=== PATIENT | male | born 1955 | race African-American/Black ===

== ENCOUNTER 2023-12-28 17:10 | Inpatient (IN) | payer MEDICAID, MEDICARE ==
[~2023-12-28] VITALS: Ht 172.7 cm; Wt 95.3 kg
[2023-12-28 17:25] VITALS: O2SAT 97
[2023-12-28 18:00] VITALS: BP 123/86; PULSE 65; RESP 19; TEMP 98.3; O2SAT 99
[2023-12-28 19:08] LABS: BASOPHILS % (AUTO) 0.7 % (0.0-2.0); EOSINOPHILS # (AUTO) 0.2 K/uL (0-0.4); EOSINOPHILS % (AUTO) 3.1 % (0.0-4.0); HEMATOCRIT 45.4 % (36-52); HEMOGLOBIN 15.5 g/dL (12.0-18.0); LYMPHOCYTES # (AUTO) 1.8 K/uL (2.0-11.5); LYMPHOCYTES % (AUTO) 33.5 % (20.5-51.1); MEAN CORPUSCULAR HEMOGLOBIN 31 pg (27-31); MEAN CORPUSCULAR HGB CONC 34 g/dL (33-37); MEAN CORPUSCULAR VOLUME 89.4 fL (80-94); MONOCYTES # (AUTO) 0.7 K/uL (0.8-1.0); MONOCYTES % (AUTO) 12.6 % (1.7-9.3); NEUTROPHILS # (AUTO) 2.6 K/uL (1.8-7.7); NEUTROPHILS % (AUTO) 50.1 % (42.2-75.2); PLATELET COUNT (AUTO) 228 K/uL (140-450); RED BLOOD CELL COUNT(AUTO) 5.08 MIL/uL (4.20-6.10); RED CELL DISTRIBUTION WIDTH 16.6 % (11.6-13.7); WHITE BLOOD COUNT (AUTO) 5.3 K/uL (4.8-10.8)
[2023-12-28] MEDS: ASPIRIN 325 MG TAB PO ONE (19:23)
[2023-12-28] MEDS: NITROGLYCERIN 0.4 MG TAB SL ONE (19:23)
[2023-12-28 19:30] LABS: ANION GAP 13.9 (8-16); CALCIUM 8.7 mg/dL (8.5-10.1); CARBON DIOXIDE 26.5 mmol/L (21-32); POTASSIUM 4.4 mmol/L (3.5-5.1)
[2023-12-28 19:35] LABS: ALANINE AMINOTRANSFERASE 33 U/L (12-78); ALBUMIN 3.3 g/dL (3.4-5.0); ALKALINE PHOSPHATASE 143 U/L (50-136); ASPARTATE AMINOTRANSFERASE 28 U/L (15-37); BILIRUBIN,DIRECT 0.1 mg/dL (0.0-0.3); TOTAL BILIRUBIN 0.7 mg/dL (0.0-1.0); TOTAL PROTEIN, SERUM 7.6 g/dL (6.4-8.2)
[2023-12-28 19:36] LABS: INR 1.11 (0.8-1.2); PARTIAL THROMBOPLASTIN TIME 28.1 secs (22-35.6); PROTHROMBIN TIME 11.6 secs (10.8-13.4)
[2023-12-28] MEDS ORDERED: ONDANSETRON 4 MG/2 ML VIAL IVP PRN (20:10)
[2023-12-28] MEDS ORDERED: LORazepam 2 MG/ML VIAL IVP PRN (20:10)
[2023-12-28] MEDS: NACL 0.9% 1,000 ML IV SCH (20:36)
[2023-12-28] MEDS: ATORVASTATIN 20 MG TAB PO SCH (21:11)
[2023-12-28] MEDS: MORPHINE SULFATE 2 MG/ML SYR IVP PRN (23:49)
[2023-12-29] VITALS (8 sets, daily range): BP systolic 95–137; BP diastolic 60–90; PULSE 57–74; RESP 18; TEMP 97.1–98.3; O2SAT 97–98
[2023-12-29] MEDS ORDERED: POLY17PD46 PO (00:16)
[2023-12-29] MEDS ORDERED: LEVE100021 PO (00:16)
[2023-12-29] MEDS ORDERED: METF-346 PO (00:16)
[2023-12-29] MEDS ORDERED: [UNRECOGNIZED DRUG - CODE] TP (00:16)
[2023-12-29] MEDS ORDERED: CLOP75TA55 PO (00:16)
[2023-12-29] MEDS ORDERED: DOCU-299 PO (00:16)
[2023-12-29] MEDS ORDERED: PANT40VI IV (00:16)
[2023-12-29] MEDS ORDERED: OMEP1CAP PO (00:16)
[2023-12-29] MEDS ORDERED: CARV3.12 PO (00:16)
[2023-12-29 05:44] LABS: BASOPHILS % (AUTO) 0.7 % (0.0-2.0); EOSINOPHILS # (AUTO) 0.2 K/uL (0-0.4); EOSINOPHILS % (AUTO) 3.5 % (0.0-4.0); HEMATOCRIT 42.9 % (36-52); HEMOGLOBIN 14.6 g/dL (12.0-18.0); LYMPHOCYTES # (AUTO) 2.1 K/uL (2.0-11.5); LYMPHOCYTES % (AUTO) 35.8 % (20.5-51.1); MEAN CORPUSCULAR HEMOGLOBIN 31 pg (27-31); MEAN CORPUSCULAR HGB CONC 34 g/dL (33-37); MEAN CORPUSCULAR VOLUME 89.6 fL (80-94); MONOCYTES # (AUTO) 0.7 K/uL (0.8-1.0); MONOCYTES % (AUTO) 12.5 % (1.7-9.3); NEUTROPHILS # (AUTO) 2.8 K/uL (1.8-7.7); NEUTROPHILS % (AUTO) 47.5 % (42.2-75.2); PLATELET COUNT (AUTO) 236 K/uL (140-450); RED BLOOD CELL COUNT(AUTO) 4.78 MIL/uL (4.20-6.10); RED CELL DISTRIBUTION WIDTH 16.6 % (11.6-13.7); WHITE BLOOD COUNT (AUTO) 5.8 K/uL (4.8-10.8)
[2023-12-29 06:06] LABS: ANION GAP 11.9 (8-16); CALCIUM 8.5 mg/dL (8.5-10.1); CREATININE 1.1 mg/dL (0.6-1.3); POTASSIUM 3.9 mmol/L (3.5-5.1)
[2023-12-29] MEDS ORDERED: NON-FORMULARY ITEM (Levetiracetam 1,000 MG) PO SCH (09:00)
[2023-12-29] MEDS: carvediloL 3.125 MG TAB PO SCH (09:00)
[2023-12-29] MEDS: ASPIRIN 81 MG TAB.CHEW PO SCH (09:03)
[2023-12-29] MEDS: levETIRAcetam 500 MG TAB PO SCH (10:34)
[2023-12-29] MEDS: POLYETHYLENE GLYCOL 17 GM/PKT PO SCH (10:35)
[2023-12-29] MEDS: PANTOPRAZOLE 40 MG INJ VIAL IV SCH (10:35)
[2023-12-29] MEDS: CLOPIDOGREL 75 MG TAB PO SCH (10:35)
[2023-12-29] MEDS ORDERED: NON ADHERENT DRESSING TP PRN (11:30)
[2023-12-29] MEDS ORDERED: GAUZE TP PRN (11:30)
[2023-12-29] MEDS: NON ADHERENT DRESSING TP SCH (13:00)
[2023-12-29] MEDS: GAUZE TP SCH (13:00)
[2023-12-29] MEDS: ATORVASTATIN 20 MG TAB PO SCH (21:00)
[2023-12-30] VITALS: BP 131/90; PULSE 68; RESP 18; TEMP 97.5; O2SAT 98
[2023-12-30 04:00] VITALS: BP 122/90; PULSE 62; RESP 18; TEMP 97.1; O2SAT 98
[2023-12-30 08:00] VITALS: BP 121/84; PULSE 59; RESP 17; TEMP 97.7; O2SAT 97
[2023-12-30 12:00] VITALS: BP 107/72; PULSE 69; PULSE 73; RESP 18; TEMP 97.9; O2SAT 98
[2023-12-30 16:00] VITALS: BP 142/88; PULSE 64; RESP 18; TEMP 97.8; O2SAT 98
[2023-12-30 20:00] VITALS: BP 143/84; PULSE 60; PULSE 68; RESP 17; RESP 18; TEMP 97.4; O2SAT 96; O2SAT 97
[2023-12-30] MEDS: DOCUSATE SODIUM 100 MG GELCAP PO PRN (20:46)
[2023-12-31 04:00] VITALS: BP 137/91; PULSE 70; RESP 18; TEMP 97.3; O2SAT 97
[2023-12-31 05:46] LABS: ANION GAP 14.8 (8-16); CALCIUM 8.8 mg/dL (8.5-10.1); CARBON DIOXIDE 25.5 mmol/L (21-32); CREATININE 1.1 mg/dL (0.6-1.3); POTASSIUM 4.3 mmol/L (3.5-5.1)
[2023-12-31 08:00] VITALS: PULSE 84; RESP 18; O2SAT 95
[2023-12-31] MEDS: lisinopriL 5 MG TAB PO SCH (08:40)
[2023-12-31] MEDS ORDERED: LISI5TAB18 PO (09:01)
[2023-12-31 09:33] LABS: BASOPHILS # (AUTO) 0.1 K/uL (0.00-0.22); EOSINOPHILS # (AUTO) 0.2 K/uL (0-0.4); EOSINOPHILS % (AUTO) 3.5 % (0.0-4.0); HEMATOCRIT 44.5 % (36-52); LYMPHOCYTES # (AUTO) 1.4 K/uL (2.0-11.5); MEAN CORPUSCULAR HEMOGLOBIN 30 pg (27-31); MEAN CORPUSCULAR HGB CONC 34 g/dL (33-37); MEAN CORPUSCULAR VOLUME 89.7 fL (80-94); MONOCYTES # (AUTO) 0.6 K/uL (0.8-1.0); MONOCYTES % (AUTO) 10.2 % (1.7-9.3); NEUTROPHILS # (AUTO) 3.3 K/uL (1.8-7.7); NEUTROPHILS % (AUTO) 59.3 % (42.2-75.2); PLATELET COUNT (AUTO) 251 K/uL (140-450); RED BLOOD CELL COUNT(AUTO) 4.97 MIL/uL (4.20-6.10); RED CELL DISTRIBUTION WIDTH 16.2 % (11.6-13.7); WHITE BLOOD COUNT (AUTO) 5.5 K/uL (4.8-10.8)
[2023-12-31 12:16] VITALS: BP 141/87; PULSE 84; RESP 18; TEMP 97.8; O2SAT 95
[2023-12-31 13:56] VITALS: BP 141/87; PULSE 84; RESP 18; TEMP 97.8
== END 2023-12-31 14:50 | DRG 203 ==
LOC: MED 17:10 → MTU 20:10
PROVIDERS: ADMIT Family Medicine; ATTEND Family Medicine
DX: M94.0 Chondrocostal junction syndrome [Tietze] (principal); E44.0 Moderate protein-calorie malnutrition; E11.9 Type 2 diabetes mellitus without complications; I25.10 Atherosclerotic heart disease of native coronary artery without angina pectoris; G40.909 Epilepsy, unspecified, not intractable, without status epilepticus; E78.5 Hyperlipidemia, unspecified; I10 Essential (primary) hypertension; F99 Mental disorder, not otherwise specified; Z87.820 Personal history of traumatic brain injury; Z99.3 Dependence on wheelchair; Z68.31 Body mass index [BMI] 31.0-31.9, adult
CPT/HCPCS: 36415; 71045; 80048; 80076; 82948; 83880; 84484; 85025; 85610; 85730; 87081; 93005; 99285; C9113; J2270

== ENCOUNTER 2024-03-14 19:28 | Emergency (ER) | payer MEDICAID, MEDICARE ==
[~2024-03-14] VITALS: Ht 172.7 cm; Wt 113.4 kg
[~2024-03-14 19:28] MED LIST: CARV3.12 PO; CLOP75TA55 PO; DOCU-299 PO; LEVE100021 PO; LISI5TAB18 PO; METF-346 PO; OMEP1CAP PO; PANT40VI IV; POLY17PD46 PO; [UNRECOGNIZED DRUG - CODE] TP
[2024-03-14 19:38] VITALS: BP 144/85; PULSE 52; RESP 18; TEMP 97.6; O2SAT 100
[2024-03-14 19:56] VITALS: O2SAT 95
[2024-03-14 21:08] VITALS: O2SAT 95
[2024-03-14 23:36] VITALS: O2SAT 95
[2024-03-15 02:07] VITALS: O2SAT 95
[2024-03-15 10:44] VITALS: BP 102/49; PULSE 86; RESP 27; TEMP 97.6; O2SAT 95
== END 2024-03-15 02:42 | disposition home or self-care (01) ==
LOC: MED 19:28
DX: M79.674 Pain in right toe(s) (principal); S09.90XA Unspecified injury of head, initial encounter; I25.10 Atherosclerotic heart disease of native coronary artery without angina pectoris; E11.9 Type 2 diabetes mellitus without complications; I10 Essential (primary) hypertension; Z86.69 Personal history of other diseases of the nervous system and sense organs; Z79.84 Long term (current) use of oral hypoglycemic drugs; Z79.899 Other long term (current) drug therapy; Z98.890 Other specified postprocedural states; W07.XXXA Fall from chair, initial encounter; Y93.89 Activity, other specified; Y92.89 Other specified places as the place of occurrence of the external cause; Y99.8 Other external cause status
CPT/HCPCS: 70450; 73660; 99285; Q0092